=== PATIENT | male | born 1950 | race American Indian/Alaskan Native ===

== ENCOUNTER 2017-05-17 01:24 | Emergency (ER) | payer MEDICARE, MEDICAID ==
[2017-05-17 01:42] VITALS: BP 147/74
--- NOTE | 2017-05-17 01:48 | EDM.PDOC ---
ED HPI GENERAL MEDICAL PROBLEM - General Stated Complaint: NEEDS MEDICINE Time Seen by Provider: 05/17/17 01:38 - History of Present Illness INITIAL COMMENTS - FREE TEXT/NARRATIVE: 66-year-old male presents emergency room for medication refills. The patient lives near [facility] and he came over here today unfortunately he left his medications at home. Fortunately we were able to get a copy of his active med list from the [employer] agency who is open at this hour.. 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 levetiracetan 500 mg 3 by mouth twice a day he is given #6. Metoprolol succinate 100 mg 1 daily dispense #1 metformin 500 mg #42 by mouth twice a day by mouth pioglitazone 30 mg 1 by mouth daily #1, gabapentin 600 mg #2 one half morning one half noon one in the evening. Warfarin 5 mg #1 1 daily Departure - Departure Time of Disposition: 02:06 Disposition: Admitted As Inpatient 66 Clinical Impression: Medication refill - Discharge Information Additional Instructions: Return to the emergency room with any questions or problems
== END 2017-05-17 02:10 | disposition home or self-care (01) ==
LOC: JD.ED 01:24
DX: Z76.0 Encounter for issue of repeat prescription (principal)
CPT/HCPCS: 99283